=== PATIENT | female | born 1995 | race Caucasian/White ===

== ENCOUNTER 2024-05-06 10:15 | Emergency (ER) | payer OTHER | END 2024-05-06 10:41 | disposition home or self-care (01) | LOC: BURERS 10:15 | DX: O9A.212 Injury, poisoning and certain other consequences of external causes complicating pregnancy, second trimester (principal); S50.811A Abrasion of right forearm, initial encounter; S30.811A Abrasion of abdominal wall, initial encounter; Z3A.21 21 weeks gestation of pregnancy; W54.0XXA Bitten by dog, initial encounter | CPT/HCPCS: 99283 ==